=== PATIENT | male | born 2000 | race American Indian/Alaskan Native ===

== ENCOUNTER 2021-02-07 16:19 | Emergency (ER) | payer MEDICAID ==
[~2021-02-07] VITALS: Ht 180.3 cm; Wt 100.0 kg
[~2021-02-07 16:19] MED LIST: NO HOME MEDS
[2021-02-07 16:51] VITALS: BP 130/85
== END 2021-02-07 17:49 | disposition home or self-care (01) ==
LOC: ER 16:20
DX: K40.90 Unilateral inguinal hernia, without obstruction or gangrene, not specified as recurrent (principal); R10.30 Lower abdominal pain, unspecified
CPT/HCPCS: 99281

== ENCOUNTER 2022-04-20 10:12 | Day surgery (SDC) | payer MEDICAID ==
[2022-04-14 16:30] LABS: BASOPHILS # (AUTO) 0.1 X10'3 (0-0.2); BASOPHILS % (AUTO) 0.6 % (0-1); EOSINOPHILS # (AUTO) 0.1 X10'3 (0-0.9); EOSINOPHILS % (AUTO) 0.6 % (0-6); LYMPHOCYTES # (AUTO) 3.6 X10'3 (1.1-4.8); LYMPHOCYTES % (AUTO) 29.1 % (21-51); MEAN CORPUSCULAR HEMOGLOBIN 29.1 PG (27.0-31.0); MEAN CORPUSCULAR HGB CONC 32.9 g/dL (33.0-36.5); MEAN CORPUSCULAR VOLUME 88.5 FL (78-98); MEAN PLATELET VOLUME 8.3 FL (7.4-10.4); MONOCYTES # (AUTO) 0.9 X10'3 (0-0.9); MONOCYTES % (AUTO) 7.2 % (2-12); NEUTROPHILS # (AUTO) 7.8 X10'3 (1.8-7.7); NEUTROPHILS % (AUTO) 62.5 % (42-75); PRE OP HEMOGLOBIN 15.8 g/dL (14.0-17.9); PRE OP PLATELET COUNT 263 X10'3 (140-440); RED BLOOD COUNT 5.42 X10'6 (4.70-6.10); RED CELL DISTRIBUTION WIDTH 12.9 % (11.5-14.5)
[2022-04-14 16:48] LABS: ALBUMIN 4.8 G/DL (3.4-5.0); ALBUMIN/GLOBULIN RATIO 1.2 (1.1-1.5); ALKALINE PHOSPHATASE 69 IU/L (46-116); BLOOD UREA NITROGEN 11 MG/DL (7-18); BUN/CREATININE RATIO 11.1 (5.4-32.0); CALCIUM 9.7 MG/DL (8.5-10.1); CHLORIDE 99 MMOL/L (99-107); CREATININE 0.99 MG/DL (0.60-1.10); PRE OP ALT 30 U/L (30-65); PRE OP ANION GAP 8 (8-16); PRE OP AST 34 U/L (10-37); PRE OP BILIRUB, TOTAL 0.5 MG/DL (0.0-1.0); PRE OP GLUCOSE 95 MG/DL (70-104); PRE OP POTASSIUM 3.7 MMOL/L (3.4-5.1); PRE OP SODIUM 137 MMOL/L (135-145); TOTAL CARBON DIOXIDE 30.4 MMOL/L (24-32); TOTAL PROTEIN 8.8 G/DL (6.4-8.2); eGFR > 90 ML/MIN
[~2022-04-20] VITALS: Ht 180.3 cm; Wt 108.5 kg
[2022-04-20] VITALS (9 sets, daily range): BP systolic 118–140; BP diastolic 66–90
[~2022-04-20 10:12] MED LIST changes: +ceFAZolin inj. 2,000 MG in dextrose 5%-water 100 ML IV ONE; +famotidine 20mg tablet PO ONE; +ringers solution, lacted 1,000 ML IV SCH
[2022-04-20] MEDS ORDERED: LIDOcaine 1% 30ml preserv. free vial ONE (12:57)
[2022-04-20] MEDS ORDERED: BUPIVAcaine 0.5% inj/PF 30 ML ONE (12:57)
[2022-04-20] MEDS ORDERED: sevoflurane 250ml liquid IH ONE (12:58)
[2022-04-20] MEDS ORDERED: fentaNYL /PF 50mcg/ml 5ml ampule ONE (13:00)
[2022-04-20] MEDS ORDERED: midazolam 1 mg/ML 2ml injection ONE (13:00)
[2022-04-20] MEDS ORDERED: BUPIVAcaine 0.5% inj/PF 30 ml vial IJ ONE (13:18)
[2022-04-20] MEDS ORDERED: rocuronium 10mg/ml inj IV ONE (13:24)
[2022-04-20] MEDS ORDERED: propofol inj 20 ML IV ONE (13:24)
[2022-04-20] MEDS ORDERED: neostigmine methylsulfate 1 MG/ML 10ml vial ONE (13:25)
[2022-04-20] MEDS ORDERED: glycopyrrolate 0.2mg/ml inj ONE (13:25)
[2022-04-20] MEDS ORDERED: dexamethasone sod phosphate 4mg/ml inj. ONE (13:25)
[2022-04-20] MEDS ORDERED: LIDOcaine 2% (20mg/ml) 5ml vial ONE (13:25)
[2022-04-20] MEDS ORDERED: ondansetron/PF 4mg/2ml inj ONE (13:25)
[2022-04-20] MEDS ORDERED: acetaminophen 1,000mg/100ml IV 100 ML IV PRN (14:50)
[2022-04-20] MEDS ORDERED: ketorolac trometh. 30mg/ml inj. IV ONE (14:50)
[2022-04-20] MEDS ORDERED: meperidine/PF 25mg/ml syringe IV PRN ×2 (14:50)
[2022-04-20] MEDS ORDERED: proCHLORperazine 10 MG/2 ml inj IV PRN (14:50)
[2022-04-20] MEDS ORDERED: hydrALAZINE 20mg/ml inj. IV PRN (14:50)
[2022-04-20] MEDS ORDERED: ondansetron/PF 4mg/2ml inj IV PRN (14:50)
[2022-04-20] MEDS ORDERED: morphine 4 MG/ML inj SYRINge IV PRN (14:50)
[2022-04-20] MEDS ORDERED: morphine 2 MG/ML inj. syringe IV PRN (14:50)
[2022-04-20] MEDS ORDERED: labetalol 20mg/4ml (5mg/ml) syringe IV PRN (14:50)
[2022-04-20] MEDS ORDERED: ringers solution, lacted 1,000 ML IV SCH (14:50)
--- NOTE | 2022-04-20 14:52 | NUR ---
Received from OR via SALTY IN STABLE CONDITION , accompanied by Anesthesiologist and ATTIC BLOWER report given by ATTIC BLOWER AND Anesthesiolgist. Addendum: 04/20/22 at 1517 by Jacqueline Porter RN Amended: Links added.
[2022-04-20] MEDS ORDERED: oxyCODONE/APAP 5-325mg tablet PO PRN (14:55)
[2022-04-20] MEDS: meperidine/PF 25mg/ml syringe IV PRN ×2 (15:27→15:51)
--- NOTE | 2022-04-20 15:40 | NUR ---
PERFORMED BLADDER SCANNER AND 2 CC OF URINE NOTED. PATIENT TOLERATED PROCEDURE WELL.
--- NOTE | 2022-04-20 16:07 | NUR ---
ALL DISCHARGE CRITERIA HAS BEEN MET. VSS, PAIN AT A TOLERABLE LEVEL, VOIDING AND ABLE TO SAFELY AMBULATE AND TRANSFER SELF. IV TAKEN OUT WITHOUT ANY COMPLICATIONS. ALL DISCHARGE INSTRUCTIONS COVERED WITH PATIENT AND ALL QUESTIONS ANSWERED. PATIENT TAKEN OUT VIA WHEELCHAIR WITH ALL BELONGINGS TO PERSONAL VEHICLE WHERE FAMILY DROVE PATIENT HOME. Addendum: 04/20/22 at 1618 by Chris Baron RN Amended: Links added.
== END 2022-04-20 16:07 | disposition home or self-care (01) ==
LOC: PAS 10:12
PROVIDERS: ATTEND Surgery
DX: K40.20 Bilateral inguinal hernia, without obstruction or gangrene, not specified as recurrent (principal); K42.9 Umbilical hernia without obstruction or gangrene; E66.9 Obesity, unspecified; Z68.34 Body mass index [BMI] 34.0-34.9, adult; F12.90 Cannabis use, unspecified, uncomplicated; Z88.8 Allergy status to other drugs, medicaments and biological substances; Z72.89 Other problems related to lifestyle; Z79.899 Other long term (current) drug therapy; Z83.3 Family history of diabetes mellitus; Z80.3 Family history of malignant neoplasm of breast; Z80.0 Family history of malignant neoplasm of digestive organs; Z82.61 Family history of arthritis; Z82.49 Family history of ischemic heart disease and other diseases of the circulatory system
CPT/HCPCS: 36415; 49591; 49650; 80053; 82948; 85025; 93005; C1781; J0690; J1100; J1885; J2175; J2250; J2405; J2704; J2710; J3010; J3490; J7030; J7060; J7120; S0020; S2900; Z7506; Z7508; Z7512; A4215; A4618